=== PATIENT | female | born 1965 | race Caucasian/White ===

== ENCOUNTER → 2016-05-09 | Outpatient (CLI) | payer BC ==
[~2016-05-09] MED LIST: ALLDSR/24 PO; FLNIN NAE; MRLP17 PO; PRENTAB26 PO
--- NOTE | 2016-05-09 15:37 | MAMMOGRAPHY REPORT ---
BILATERAL DIGITAL SCREENING MAMMOGRAM TOMOSYNTHESIS WITH CAD: 05/09/2016 CLINICAL HISTORY: Routine screening. Patient has no complaints. TECHNIQUE: Breast tomosynthesis in addition to standard 2D mammography was performed. Current study was also evaluated with a Computer Aided Detection (CAD) system. COMPARISON: Comparison is made to exams dated: 05/02/2015 mammogram, 03/30/2013 mammogram, 04/28/2014 mammogram, 03/23/2012 mammogram, 03/21/2011 mammogram, and 03/12/2010 mammogram - [facility]. BREAST COMPOSITION: The tissue of both breasts is heterogeneously dense, which may obscure small ma sses. FINDINGS: No suspicious masses, calcifications, or areas of architectural distortion are noted in e ither breast. There has been no significant interval change compared to prior exams. Circumscribed 2.2 cm mass in the left subareolar breast with associated calcifications is stable compared to multi ple prior exams dating back to at least 2007, and is therefore considered benign. IMPRESSION: ACR BI-RADS CATEGORY 2: BENIGN There is no mammographic evidence of malignancy. A 1 year screening mammogram is recommended. The p atient will receive written notification of the results. Approximately 10% of breast cancers are not detected with mammography. A negative mammographic repor t should not delay biopsy if a clinically suggestive mass is present. Robina Vargas M.D. ah/:05/09/2016 15:21:43 [employer]: Maritza GUNDERSON)([place]), [facility] letter sent: Normal 1/2 BI-RADS Code: ACR BI-RADS Category 2: Benign
== END | disposition home or self-care (01) ==
LOC: C.MAMM 10:21
PROVIDERS: ATTEND Family Medicine
DX: Z12.31 Encounter for screening mammogram for malignant neoplasm of breast (principal)

== ENCOUNTER → 2017-05-22 | Outpatient (CLI) | payer OTHER ==
--- NOTE | 2017-05-22 15:17 | MAMMOGRAPHY REPORT ---
BILATERAL DIGITAL SCREENING MAMMOGRAM TOMOSYNTHESIS WITH CAD: 05/22/2017 CLINICAL HISTORY: Routine screening. Patient has no complaints. TECHNIQUE: Breast tomosynthesis in addition to standard 2D mammography was performed. Current study was also evaluated with a Computer Aided Detection (CAD) system. COMPARISON: Comparison is made to exams dated: 05/09/2016 mammogram, 05/02/2015 mammogram, 04/28/2014 ma mmogram, 03/30/2013 mammogram, 03/23/2012 mammogram, and 03/21/2011 [facility]. BREAST COMPOSITION: The tissue of both breasts is heterogeneously dense, which may obscure small mas ses. FINDINGS: No suspicious masses, calcifications, or areas of architectural distortion are noted in ei ther breast. There has been no significant interval change compared to prior exams. Partially circum scribed and partially obscured 2.2 cm benign-appearing mass within the left subareolar breast is stab le dating back to at least the 2007 exam and considered benign given long-term stability. IMPRESSION: ACR BI-RADS CATEGORY 2: BENIGN There is no mammographic evidence of malignancy. A 1 year screening mammogram is recommended. The pa tient will receive written notification of the results. Approximately 10% of breast cancers are not detected with mammography. A negative mammographic report should not delay biopsy if a clinically suggestive mass is present. Robina Vargas M.D. /:05/22/2017 13:24:18 [employer]: Tana GUNDERSON)([place]), [facility] letter sent: Normal 1/2 BI-RADS Code: ACR BI-RADS Category 2: Benign
== END | disposition home or self-care (01) ==
LOC: C.MAMM 09:20
PROVIDERS: ATTEND Family Medicine
DX: Z12.31 Encounter for screening mammogram for malignant neoplasm of breast (principal)

== ENCOUNTER → 2017-10-08 | Outpatient (CLI) | payer OTHER ==
--- NOTE | 2017-10-08 09:30 | DIAGNOSTIC IMAGING REPORT ---
L KNEE 3 VIEWS CLINICAL HISTORY: KNEE PAIN pain COMPARISON: None. DISCUSSION: The bones and joint spaces appear intact. There is no evidence of fracture, dislocation or bony disease. There is no evidence for soft tissue swelling. IMPRESSION: Negative study. The above report was generated using voice recognition software. It may contain grammatical, syntax or spelling errors. Electronically signed by: Darwin Basurto M.D. 10/08/2017 9:29 AM Dictated Date/Time: 10/08/2017 9:27 AM
== END | disposition home or self-care (01) ==
LOC: C.RAD1850 09:02
PROVIDERS: ATTEND Family Medicine
DX: M25.562 Pain in left knee (principal)